=== PATIENT | male | born 1980 | race African-American/Black ===

== ENCOUNTER 2021-01-12 06:25 | Day surgery (SDC) | payer OTHER ==
[~2021-01-12] VITALS: Ht 177.8 cm; Wt 81.0 kg
[~2021-01-12 06:25] MED LIST: DEXAMETHASONE SOD PHOS 4 MG/ML VIAL ONE; HYDROmorphone 2 MG/ML VIAL IVP PRN; IV RINGERS,LACTATED 1000ML 1,000 ML IV SCH; LIDOCAINE 2% PF 5 ML VIAL. ONE; MORPHINE SULFATE 2 MG/ML INJ. IVP PRN; ONDANSETRON PF 4 MG/2 ML VIAL. ONE; PROCHLORPERAZINE 10 MG/2 ML VIAL. IVP PRN; PROPOFOL 10 MG/ML (20ML) VIAL. IV ONE; ROCURONIUM 50 MG/5 ML VIAL. ONE; fentaNYL PF VIAL 100 MCG/2 ML VIAL IVP PRN
[2021-01-12 06:54] VITALS: BP 121/66
[2021-01-12] MEDS ORDERED: BUPIVACAINE MPF 0.25% 30 ML VIAL. ONE (06:57)
[2021-01-12] MEDS ORDERED: SUCCINYLCHOLINE 200 MG/10 ML VIAL. ONE (07:10)
[2021-01-12] MEDS ORDERED: fentaNYL PF VIAL 100 MCG/2 ML VIAL ONE ×2 (07:11→08:14)
[2021-01-12] MEDS ORDERED: MIDAZOLAM HCL/PF 2 MG/2 ML VIAL. ONE (07:12)
--- NOTE | 2021-01-12 07:49 | PDOC1 ---
History and Physical Date of Service: DOS: DATE: 01/12/21 TIME: 07:44 Chief Complaint: Chief Complain: Right ankle injury History of Present Illness: HPI: 40-year-old male a patient of Dr. Watkins who presents to the hospital for Achilles tendon repair. Patient did suffer a right Achilles tendon rupture while playing soccer in November 23 and had a open primary repair of his night. Unfortunately, patient had a mechanical fall on the side of the boot on December 23 and a surveillance MRI was completed showing a fluid collection over 1.4 mm x 2.3 cm just below the myotendinous junction which was concerning for an Achilles tendon repair. Patient currently denies any extreme pain, cold leg, bleeding, fevers, nausea vomiting, abdominal pain, chest pain, shortness of breath, or diarrhea. Past Medical/Surgical History: PMH/PSH: PMHx: None PSurgHx: Achilles tendon repair Allergies: Allergies: Coded Allergies: No Known Drug Allergies (Unverified , 01/12/21) Family History: Family History: Reviewed with no relevant findings Social History: Social History: Denies any alcohol, drug or tobacco abuse Current Medications: Current Medications Current Medications Fentanyl Citrate (Fentanyl 2ml Vial) 25 mcg PRN Q5MIN PRN IVP MILD PAIN 1-3; Start 01/12/21 at 06:00; Stop 01/13/21 at 05:59 Fentanyl Citrate (Fentanyl 2ml Vial) 50 mcg PRN Q5MIN PRN IVP MODERATE PAIN 4- 6; Start 01/12/21 at 06:00; Stop 01/13/21 at 05:59 Morphine Sulfate (Morphine Sulfate) 1 mg PRN Q10MIN PRN IVP SEVERE PAIN 7-10; Start 01/12/21 at 06:00; Stop 01/13/21 at 05:59 Ringer's Solution 1,000 ml @ 30 mls/hr Q24H IV Last administered on 01/12/21at 07:03; Start 01/12/21 at 06:00; Stop 01/12/21 at 17:59 Hydromorphone HCl (Dilaudid) 0.5 mg PRN Q10MIN PRN IVP SEVERE PAIN 7-10, 2nd CHOICE; Start 01/12/21 at 06:00; Stop 01/13/21 at 05:59 Prochlorperazine Edisylate (Compazine) 5 mg PACU PRN PRN IVP NAUSEA, MRX1; Start 01/12/21 at 06:00; Stop 01/13/21 at 05:59 Cefazolin Sodium/ Dextrose 50 ml @ 100 mls/hr 1X PREOP PRN IV PRIOR TO PROCEDURE; Start 01/12/21 at 06:00; Stop 01/12/21 at 18:00 Propofol (Diprivan) 200 mg STK-MED ONCE IV ; Start 01/12/21 at 06:12; Stop 01/12/21 at 06:12; Status DC Dexamethasone Sodium Phosphate (Decadron) 4 mg STK-MED ONCE .ROUTE ; Start at 06:12; Stop 01/12/21 at 06:12; Status DC Lidocaine HCl (Lidocaine Pf 2% Vial) 5 ml STK-MED ONCE .ROUTE ; Start 01/12/21 at 06:12; Stop 01/12/21 at 06:12; Status DC Ondansetron HCl (Zofran) 4 mg STK-MED ONCE .ROUTE ; Start 01/12/21 at 06:12; Stop 01/12/21 at 06:12; Status DC Rocuronium Marion (Zemuron) 50 mg STK-MED ONCE .ROUTE ; Start 01/12/21 at 06:12; Stop 01/12/21 at 06:12; Status DC Bupivacaine HCl (Sensorcaine Mpf 0.25%) 30 ml STK-MED ONCE .ROUTE ; Start 01/12/21 at 06:57; Stop 01/12/21 at 06:57; Status DC Succinylcholine Chloride (Anectine) 200 mg STK-MED ONCE .ROUTE ; Start 01/12/21 at 07:10; Stop 01/12/21 at 07:11; Status DC Fentanyl Citrate (Fentanyl 2ml Vial) 100 mcg STK-MED ONCE .ROUTE ; Start 01/12/21 at 07:11; Stop 01/12/21 at 07:11; Status DC Midazolam HCl (Versed) 2 mg STK-MED ONCE .ROUTE ; Start 01/12/21 at 07:12; Stop 01/12/21 at 07:12; Status DC Active Scripts Active Reported No Known Medications Prior To Admisstion (Info) Each 1 Each DAILY ROS: Review of Systems Review of System REVIEW OF SYSTEMS: GENERAL: Denies weakness SKIN: No bruising, hair changes or rashes. EYES: No blurred, double or loss of vision. NOSE AND THROAT: No history of nosebleeds, hoarseness or sore throat. HEART: No history of palpitations, chest pain or shortness of breath on exertion. LUNGS: Denies cough, hemoptysis, wheezing or shortness of breath. GASTROINTESTINAL: Denies changes in appetite, nausea, vomiting, diarrhea or constipation. GENITOURINARY: No history of frequency, urgency, hesitancy or nocturia. NEUROLOGIC: Denies history of numbness, tingling, or tremor. PSYCHIATRIC: No history of panic, anxiety or depression. ENDOCRINE: No history of heat or cold intolerance, polyuria or polydipsia. EXTREMITIES: Denies joint pain, pain on walking or stiffness. Physical Exam: Vital Signs: Vital Signs Date Time Temp Pulse Resp B/P (MAP) Pulse Ox O2 Delivery O2 Flow Rate FiO2 01/12/21 06:59 98.2 72 18 121/66 99 Room Air 98.2 Physcial Exam: General: Well developed, well nourished, no acute distress, well appearing HEENT: Pupils equally round and reactive to light, EOMI, no discharge, normal conjunctiva Neck: Supple, no nuchal rigidity, no JVD, trachea midline, no tenderness Cardiac: RRR, no murmurs, no gallops, no rubs Chest/Lungs: CTAB, no wheeze, no rhonchi, no crackles Abdomen: soft, non-distended, no guarding, no peritoneal signs, non-tender Back: No tenderness Extremities: Right lower extremity and casting. No obvious deformities or tenderness on palpation. Neuro: Alert and oriented x 4, no focal deficits, normal speech Labs: Labs: No recent labs to review Images: Images No recent images to review Assessment/Plan Assessment/Plan Right reoccurring Achilles tendon tear seen on MRI pending repair, Rodgers score less than 0.1% low risk for non-abdominal surgery Right Achilles tendons rupture Admit to hospitalist service for further management Orthopedic surgery to take patient to the OR for Achilles tendon repair PT OT modalities Will defer to orthopedic surgery for DVT prophylaxis N.p.o. for now CODE STATUS full Disposition on-call to the OR DPOA: Romi Simmons Justifications for Admission Other Justification MARTA FRAGA MD Jan 12, 2021 07:49
[2021-01-12] MEDS ORDERED: MORPHINE SULFATE 2 MG/ML INJ. IV PRN (08:00)
[2021-01-12] MEDS ORDERED: HYDROcodone/APAP 5/325MG 1 TAB TABLET PO PRN ×2 (08:00)
[2021-01-12] MEDS ORDERED: SENNOSIDES 8.6 MG TABLET PO PRN (08:00)
[2021-01-12] MEDS ORDERED: ONDANSETRON PF 4 MG/2 ML VIAL. IVP PRN (08:00)
[2021-01-12] MEDS ORDERED: IV NORMAL SALINE 1000ML BAG 1,000 ML IV SCH (08:00)
[2021-01-12] MEDS ORDERED: ACETAMINOPHEN 325 MG TABLET. PO PRN (08:00)
[2021-01-12] MEDS ORDERED: PROCHLORPERAZINE 10 MG/2 ML VIAL. IV PRN (08:00)
[2021-01-12] MEDS ORDERED: DOCUSATE SODIUM 100 MG CAPSULE. PO PRN (08:00)
[2021-01-12] MEDS ORDERED: MORPHINE SULFATE 2 MG/ML INJ. IVP PRN (08:00)
[2021-01-12] MEDS ORDERED: DEXTROSE 50% 25 GM / 50ML DISP.SYRIN. IV PRN (08:00)
[2021-01-12] MEDS ORDERED: KETAMINE HCL IN NACL, ISO-OSM 50 MG/5 ML SYRINGE ONE (08:14)
[2021-01-12] MEDS ORDERED: diphenhydrAMINE 50 MG/ML VIAL ONE (08:16)
[2021-01-12] MEDS ORDERED: ePHEDrine PF IN SALINE 50 MG/10 ML SYRINGE. IV ONE (08:17)
[2021-01-12] MEDS ORDERED: FAMOTIDINE 20 MG/2 ML VIAL ONE (08:17)
[2021-01-12] MEDS ORDERED: KETOROLAC 30 MG/ML VIAL. ONE (08:18)
[2021-01-12] MEDS ORDERED: NEOSTIGMINE METHYLSULFATE 5 MG/5 ML SYRINGE. ONE (08:23)
[2021-01-12] MEDS ORDERED: SEVOFLURANE > 120 MINUTES. IH ONE (08:23)
[2021-01-12] MEDS ORDERED: GLYCOPYRROLATE 1 MG/5 ML VIAL. ONE (08:23)
[2021-01-12] MEDS ORDERED: HYDROmorphone 2 MG/ML VIAL ONE (09:58)
[2021-01-12] MEDS ORDERED: HYDR-2759 PO (10:58)
[2021-01-12] MEDS ORDERED: GABAPENTIN 100 MG CAPSULE. PO ONE (11:00)
[2021-01-12] MEDS ORDERED: ACETAMINOPHEN 325 MG TABLET. PO ONE (11:00)
[2021-01-12] MEDS ORDERED: oxyCODONE/APAP 5/325 1 TAB TABLET PO ONE (11:00)
--- NOTE | 2021-01-12 11:05 | PDOC4 ---
OPERATIVE NOTE Date: Date: Jan 12, 2021 Pre-Op Diagnosis: Right Achilles tendon rerupture over the area of 1.4 cm just 2 cm distal to the myotendinous junction site according to MRI. Post-Op Diagnosis: Same as above Procedure Performed: Direct repair of the right Achilles tendon, revision Surgeon: Darius Watkins DPM Anesthesia Type: General Blood Loss: 5 cc Specimans Obtained: Deep tissue culture of the right Achilles tendon rupture site pre and post washout Findings: The proximal FiberWire sutures pulled through the proximal Achilles stump at the level of 2 cm proximal to the ankle joint along the Achilles where was believed to be the primary rupture site from the index procedure. There was mild liquefied Achilles tendon tissue changes mainly localized to the proximal stump without any purulence or deonna necrotic tissue changes. Therefore, deep tissue culture was taken pre and post washout. The distal stump was also found severely degenerated with fusiform adaptation. A second rupture site at the ankle joint level, distal to the primary Achilles rupture site while freeing the peritenon from the distal stump with finger dissection. This was not remarked on the MRI. After direct tendon repair/stump apposition, Manrique test was negative. Complications: None Operative Note: Indication: S/p November 23 right Achilles tendon rupture while playing soccer. Subsequently, patient underwent mini open primary repair on December 01, 2020 with another surgeon. Patient sustained a mechanical fall without the boot on December 23. Surveillance MRI on December 31 remarked fluid collection over 1.4 mm area which is approximately 2.3 cm below the myotendinous junction concerning for recurrent tearing of the Achilles tendon. Patient was referred to me due to insurance coverage benefit. We discussed extensively on conservative measures with Solares protocol as opposed to another primary repair. Patient is adamant with surgical repair with the hope of better and faster recovery, stronger strength across the Achilles tendon given his strenuous activity demand. Due to the prior procedure and the location of the rerupture site, the challenges with surgeries are scar adhesion, sural nerve injury, rerupture, skin healing complication and inf ection. The suture purchase at the proximal stump is concerning due to close proximity to the myotendinous junction, shredded a/pull through proximal tendon stump. Patient verbalized understanding and eventually consented for surgical intervention. Under mild sedation, patient was brought into the operating room and placed on supine position on the gurney. A standard timeout was performed to confirm patient's identity, procedure and procedure site. Following IV antibiotics and general anesthesia, a well-padded right thigh tourniquet was applied. Then patient was transferred to the operating table in a prone position with all the bony anatomies well-padded and protected. The right lower extremity was then scrubbed, prepped and draped using aseptic techniques. Using intraoperative x- ray, the ankle joint, posterior calcaneal tuber were marked. The rupture site was measured and marked based on the preoperative MRI and intraoperative x-ray. Then the right lower extremity was exsanguinated and pressure was set at 250 millimercury. The attention was directed to the posterior Achilles tendon near the rupture site through palpation and measurement preoperatively, approximately 2.5 cm proximal from the ankle joint. A straight linear incision measured approxi mately 5 cm was placed over the rupture site, traversing the prior transverse incision. The incision was carried deep with care to protect and retract all the neurovascular bundles to the layer of peritenon. At this time, the sural nerve was encountered within the surgical window, right and just lateral to the Achilles margin. Care was taken to bluntly free the sural nerve from the surrounding adhesions/deep fascia and then retracted laterally for protection. At this time, moderate scar tissue and adhesion was noted to the posterior, medial and lateral aspect of Achilles tendon within the peritenon sheath. The proximal Achilles tendon repair failed because FiberWire sutures pulled through the proximal Achilles stump at the level of 2.5 cm proximal to the ankle joint as remarked on the MRI. Proximal stump was also shredded/fibrillated and complicated with mild liquefied tissue changes without deonna purulence, discharge, necrotic soft tissue changes otherwise. The distal Achilles stump was noted severely degenerated with fusiform changes. The FiberWire sutures were removed from the distal and proximal Achilles stumps through the incision site with care not to compromise the residual Achilles integrity. The Achilles was carefully freed from the peritenon with finger dissection both proximally and distally. During the finger dissection, a second site of Achilles rupture was noted at the ankle level leaving the distal stump rather short. The mopped end on proximal Achilles tendon was modified conservatively to ease the direct repair later. At this time, deep tissue culture was collected before washout to rule out possible soft tissue infection. The liquefied proximal Achilles stump was sharply excised. The fusiform/degenerated scar tissue was carefully resected out from the distal Achilles stump. Then the surgical site was irrigated with copious saline solution. Then a posterior washout deep tissue culture was collected and sent for Gram stain, anaerobes, aerobes, culture and sensitivity. Using an Allis clamp, the proximal Achilles stump was pulled into the incision site distally. Then an Arthrex PARS jig was introduced to the proximal Achilles stump within the peritenon. The jig was carefully advanced proximally without any tendon or peritenon bunching. Then following the standard protocol, traversing 5 x percutaneous pins were placed from medial to lateral followed by #2 FiberWire percutaneously introduced through the Achilles tendon substance proximally. Then the jig with was drawn distally and then the sutures were pulled into the surgical wound within the peritenon. Individual FiberWire was tested purchasing the proximal tendon stump adequately. 2 locking sutures were achieved on both sides of the proximal Achilles tendon. At this time, sati sfactory FiberWire purchase the proximal tendon stump was noted. Two full- thickness linear skin incisions, proximally 1 cm, were placed immediately medial and lateral at the Achilles insertion site. The incision was carried deep to the layer of periosteum layer with blunt dissection and care to retract and protect all the neurovascular bundles. Within these stab incisions, a 3.5 mm drill was advanced into the calcaneal tuber with care to not to violate or penetrate subtalar joint or plantar calcaneal cortex. The drill holes were tapped with 4.75 mm tap to prepare for swivel lock anchors. Using a banana suture lasso, the proximal pars sutures were passed through the distal Achilles stump out of the distal stab incisions. two 4.75 mm swivel lock anchors were used to tension and secure the proximal pars fiber wires with ankle held near 30 degrees plantarly where the two Achilles stumps were almost well opposed, leaving approximately 1 cm gap due to the remodeled mopped ends. Intraoperative palpation was negative for swivel lock anchor prominence posteriorly or plantarly. To further reapproximate the rupture stumps, modified Wishram with #2 FiberWire was used to reinforce the repair and until the Achilles stumps were well opposed. To further reduce the scar adhesion and to reinforce the structure repair, a 5 x7 x 1.2 cm dermal allograft was wrapped circumferentially around the Achilles rupture site and secured with 3-0 Vicryl. surgical sites were irrigated with copious saline solution. The surgical site was closed in layers with 4 Monocryl, 3-0 nylon. The procedure site was anesthetized with 20 cc of 0.25% Marcaine plain. The procedure site was dressed with jumpstart dressing from Arthrex, 4 x 4, ABD and immobilized in a well-padded Mendoza compression splint with a sugar tong while the ankle was held at gravity equinus. The tourniquet was released and adequate digital perfusion was noted. Patient tolerated the procedure and anesthesia well with neurovascular status intact and was transferred to PACU for continued recovery. Pending 3 view right ankle x-ray. DARIUS WATKINS DPM Jan 12, 2021 11:05
[2021-01-12] MEDS ORDERED: MORPHINE SULFATE 2 MG/ML INJ. ONE (11:07)
--- NOTE | 2021-01-12 11:27 | RAD ---
Three-view right ankle study Clinical indications: Postoperative study FINDINGS: Right ankle has been immobilized in a cast which obscures fine bony detail. No fracture mary e is evident. Alignment is normal. Mortise ankle joint is intact. No lytic process is seen. IMPRESSION: Immobilization of right ankle. No acute osseous abnormality. Electronically signed by: Ji Borden MD (01/12/2021 11:25 AM) [id number]
[2021-01-12 11:49] VITALS: BP 138/81
[2021-01-12] MEDS ORDERED: PROCHLORPERAZINE 10 MG/2 ML VIAL. ONE (12:12)
== END 2021-01-12 13:44 | disposition home or self-care (01) ==
LOC: SURG 06:25
PROVIDERS: ATTEND Podiatrist
DX: S86.011A Strain of right Achilles tendon, initial encounter (principal); Z79.899 Other long term (current) drug therapy; Z98.890 Other specified postprocedural states; X58.XXXA Exposure to other specified factors, initial encounter; Y93.89 Activity, other specified; Y92.89 Other specified places as the place of occurrence of the external cause; Y99.8 Other external cause status
CPT/HCPCS: 27650; 73610; 87071; 87075; A4930; A6223; A6253; A6402; A6449; A6450; C1713; J0330; J0690; J0780; J1100; J1170; J1200; J1885; J2250; J2270; J2405; J2704; J2710; J3010; J3490; 76000; A4657